=== PATIENT | female | born 1980 | race Caucasian/White ===

== ENCOUNTER 2019-09-07 08:05 | Day surgery (SDC) | payer BC ==
[~2019-09-07 08:05] MED LIST: DEXAMETHASONE SOD PHOSPHATE 10 MG/ML 1 ML VIAL IV ONE; HEPARIN SODIUM,PORCINE 5,000 UNIT/ML 1 ML VIAL SQ ONE; HYDROmorphone 0.5 MG/0.5 ML SYRINGE IVP PRN; LIDOCAINE 1% 20 ML VIAL (10MG/ML) FOR IV START INTRADERMA PRN; MIDAZOLAM 2 MG/2 ML VIAL IV PRN; ONDANSETRON 4 MG/2 ML VIAL IVP ONE; SCOPOLAMINE 1.5MG/72HR PATCH TRANSDERM ONE
[2019-09-07] MEDS: LACTATED RINGERS 1,000 ML IV SCH ×3 (08:50→21:39)
[2019-09-07] MEDS ORDERED: SCOPOLAMINE 1.5MG/72HR PATCH TRANSDERM ONE (09:00)
[2019-09-07] MEDS ORDERED: PHENYLEPHRINE-0.9% NACL SYG 1 MG/10 ML SYRINGE ONE (10:14)
[2019-09-07] MEDS ORDERED: PROPOFOL 10 MG/ML 20 ML VIAL IV ONE (10:14)
[2019-09-07] MEDS ORDERED: MIDAZOLAM 2 MG/2 ML VIAL ONE (10:14)
[2019-09-07] MEDS ORDERED: LIDOCAINE 1% INJ 10MG/ML (20 ML MDV) ONE (10:14)
[2019-09-07] MEDS ORDERED: ROPIVACAINE 5 MG/ML 30 ML VIAL ONE (10:14)
[2019-09-07] MEDS ORDERED: fentaNYL (PF) 50 MCG/ML 2 ML AMP ONE (10:14)
[2019-09-07] MEDS ORDERED: NALOXONE 0.4 MG/ML 1 ML VIAL IV PRN (11:12)
--- NOTE | 2019-09-07 11:15 | P.OP ---
Date of Procedure: 09/07/19 Procedure(s) Performed: PREOPERATIVE DIAGNOSIS: Umbilical hernia POSTOPERATIVE DIAGNOSIS: Same PROCEDURE: Umbilical herniorrhaphy SURGEON: Vesna EBL: Minimal ANESTHESIA: General COMPLICATIONS: None OPERATIVE PROCEDURE: The patient was placed in the operating table in the supine position. A periumbilical incision was made using the scalpel. The subcutaneous tissues were dissected bluntly. The hernia sac was identified. The umbilical attachments to the fascia were divided using electrocautery. The hernia sac was excised. The hernia sac was sent to pathology. The patient had a small 2-3 mm defect adjacent to the main defect. This was incorporated into the fascial opening. Fascial defect by measurement was 1.5 cm x 1 cm. The 4.3 cm ventral ex mesh was placed beneath the fascia and sutured in place using trans-fascial 0 Ethibond sutures. The fascial defect was then closed using interrupted vest over pants 0 Ethibond sutures. The folding edge was tacked down using 0 Ethibond sutures as well. The subcutaneous tissues were reapproximated using inverted 3-0 Vicryl sutures. The umbilicus was tacked back down to the fascia using a 3-0 Vicryl suture. The skin was closed using 4-0 Monocryl sutures. Skin glue and sterile dressings were then applied. DISPOSITION: Stable to recovery room
[2019-09-07] MEDS ORDERED: HYDROmorphone 1 MG/ML 1 ML SYRINGE IVP ONE (13:17)
--- NOTE | 2019-09-07 13:24 | XR ---
KUB HISTORY: Postop pain Frontal KUB and 2 images Patient is status post tubal ligation, clips are present within the pelvis. There are likely phleboli ths noted. There is no evident bowel obstruction or pneumoperitoneum. Bone mineralization is maintain ed. Lung bases are clear. IMPRESSION: Postop changes.
--- NOTE | 2019-09-07 13:26 | XR ---
EXAMINATION TYPE: XR chest 1V portable DATE OF EXAM: 09/07/2019 COMPARISON: KUB same day HISTORY: Pain, postop TECHNIQUE: Single frontal view of the chest is obtained. FINDINGS: Pneumoperitoneum is likely due to postop change, lucency present beneath the hemidiaphragm s. No evident pneumothorax or pleural effusion. Heart size is within normal limits. Pulmonary vascula rity and dinh within normal limits, there is no evident airspace disease. Bone mineralization is norm al. IMPRESSION: Pneumoperitoneum A Red level critical message alert has been initiated for Vipin Farooq via the [employer] on 09/07/2019 1:22 PM. This message alert has been sent to Vipin Farooq via the preferences provided by the clinician for the receipt of Radiology Critical Findings. Message ID [id number].
[2019-09-07] MEDS ORDERED: FAMOTIDINE 20 MG/2 ML VIAL IV STA (13:30)
[2019-09-07] MEDS ORDERED: FAMOTIDINE 20 MG/2 ML VIAL IVPB ONE (13:44)
[2019-09-07 15:08] VITALS: BMI 21.1
--- NOTE | 2019-09-07 15:30 | P.ANPRN ---
Procedure Note - Anesthesia - Nerve Block Performed Bilateral Rectus Abdominis Single Time Out Performed: Yes Date of Procedure: 09/07/19 Procedure Start Time: :02 Procedure Stop Time: 09:07 Location of Patient Procedure: PreOp Indication: Acute Post-Operative Pain, Requested by Surgeon Sedation Type: Sedate with meaningful contact maintained Preparation: Sterile Prep Position: Supine Needle Types: Pajunk Needle Gauge: 21 Ultrasound used to visualize needle placement: Yes Ultrasound used to observe medication spread: Yes Blood Aspirated: No Pain Paresthesia on Injection Noted: No Resistance on Injection: Normal Image Stored and Saved: Yes Events: Uneventful and Well Tolerated (ropi .5% 15cc plus xylo 2% 10cc each side)
[2019-09-07] MEDS: traMADol 50 MG TAB PO PRN ×2 (17:50→22:55)
[2019-09-07] MEDS ORDERED: LORazepam 2 MG/ML INJ IV PRN (21:02)
[2019-09-07] MEDS ORDERED: ACETAMINOPHEN TAB 325 MG TAB PO PRN (21:02)
[2019-09-08 08:05] LABS: Basophils % (A) 0 %; Eosinophils # (A) 0.1 k/uL (0-0.7); Eosinophils % (A) 1 %; HCT 36.1 % (34.0-46.0); HGB 11.8 gm/dL (11.4-16.0); Lymphocytes # (A) 2.6 k/uL (1.0-4.8); Lymphocytes % (A) 35 %; MCH 31.6 pg (25.0-35.0); MCHC 32.6 g/dL (31.0-37.0); MCV 96.9 fL (80.0-100.0); Mean Platelet Volume 8.3; Monocytes # (A) 0.3 k/uL (0-1.0); Monocytes % (A) 4 %; Neutrophils # (A) 4.3 k/uL (1.3-7.7); Neutrophils % (A) 58 %; Platelet Count 137 k/uL (150-450); RBC 3.72 m/uL (3.80-5.40); RDW 11.3 % (11.5-15.5); WBC 7.5 k/uL (3.8-10.6)
[2019-09-08 08:24] VITALS: BP 95/60; PULSE 62; RESP 16; TEMP 98
[2019-09-08] MEDS: traMADol 50 MG TAB PO PRN (08:25)
[2019-09-08 08:26] LABS: ALT 17 U/L (9-52); AST 22 U/L (14-36); African American GFR (CKD) >90 (>60 ml/min/1.73 sqM); Albumin 3.4 g/dL (3.5-5.0); Alkaline Phosphatase 31 U/L (38-126); Anion Gap 8 mmol/L; Blood Urea Nitrogen 11 mg/dL (7-17); Calcium 8.5 mg/dL (8.4-10.2); Carbon Dioxide 22 mmol/L (22-30); Chloride 107 mmol/L (98-107); Glucose 89 mg/dL (74-99); Sodium 137 mmol/L (137-145); Total Bilirubin 0.6 mg/dL (0.2-1.3); Total Protein 5.7 g/dL (6.3-8.2)
[2019-09-08] MEDS: LACTATED RINGERS 1,000 ML IV SCH (08:27)
--- NOTE | 2019-09-08 13:33 | P.DS ---
Providers Expected date of discharge: 09/08/19 Attending physician: Ricky Malagon Primary care physician: Jermain joesph [facility] Hospital Course: 39-year-old female who underwent umbilical herniorrhaphy with Dr. Malagon. Patient is doing well postoperatively. Pain is controlled on oral medications. Vital signs are stable. She is stable for discharge home today. Please see EMR for further hospital course details. Discharge diagnosis 1. Umbilical hernia, status post umbilical herniorrhaphy Nurse practitioner note has been reviewed by physician. Signing provider agrees with the documented findings, assessment, and plan of care. Patient Condition at Discharge: Stable Plan - Discharge Summary Discharge Rx Participant: Yes New Discharge Prescriptions: New traMADol HCl [Ultram] 50 mg PO Q6H PRN #10 tab PRN Reason: Pain No Action Solifenacin Succinate [Vesicare] 10 mg PO DAILY Discharge Medication List Solifenacin Succinate [Vesicare] 10 mg PO DAILY 09/02/19 [History] traMADol HCl [Ultram] 50 mg PO Q6H PRN #10 tab 09/07/19 [Rx] Follow up Appointment(s)/Referral(s): Ricky Malagon MD [Medical Doctor] - 09/15/19 10:10 am Jermain Barton MD [Primary Care Provider] - 09/13/19 11:30 am Patient Instructions/Handouts: *Surgery [facility] - (Anesthesia) Discharge Instructions Outpatient Surgery, Umbilical Hernia Repair (DC) Discharge Disposition: HOME SELF-CARE
== END 2019-09-08 12:29 | disposition home or self-care (01) ==
LOC: OR 08:05 → 4SSUR 14:00 → OR 09-08 12:29
PROVIDERS: ATTEND Surgery
DX: K42.9 Umbilical hernia without obstruction or gangrene (principal); Z98.51 Tubal ligation status; Z79.899 Other long term (current) drug therapy
CPT/HCPCS: 49585; 94760; 81025; 64486; 76942; 80053; 85025; 88302; 71045; 74018; C1781; J2250; J2060; J1100; J0690; J2405; J2001; J3010; J1170; J2795; J2370; J2704; 64488